=== PATIENT | female | born 1980 | race Caucasian/White ===

== ENCOUNTER 2021-09-08 06:47 | Emergency (ER) | payer OTHER, MEDICAID, SELFPAY ==
[2021-09-08 07:03] VITALS: BP 122/76; PULSE 95; RESP 17; TEMP 36.5; O2SAT 100; BMI 31.6
--- NOTE | 2021-09-08 07:14 | ED_ITS ---
HPI - URI/Sore Throat General Chief Complaint: Upper Respiratory Symptoms Stated Complaint: Swollen, painful neck Time Seen by Provider: 09/08/21 06:58 Source: patient Mode of arrival: Ambulatory History of Present Illness HPI Narrative: Patient is a healthy 40-year-old female who presents with swollen neck. She states that she was in her normal state of health yesterday. She has not had any fever or chills. However last night started having mild sore throat. In the morning will help with swelling in her right jaw. She denies any dental pain. Although she says will while back she lost in left upper tooth no she thinks she swallowed it. She has no pain in her teeth at all. There is no cough or fever. She denies any difficulty swallowing or speaking. Her rapid strep is negative. Related Data Previous Rx's Medication Instructions Recorded amoxicillin 875 mg-potassium 1 tab PO BID #14 tab 09/08/21 clavulanate 125 mg tablet Allergies Allergy/AdvReac Type Severity Reaction Status Date / Time No Known Drug Allergies Allergy Verified 09/08/21 07:02 Review of Systems Review of Systems Narrative: GENERAL: Denies chills, fatigue, malaise, fever, sweats, travel HEENT: See HPI RESPIRATORY: Denies dyspnea, cough, wheezing, hemoptysis, sputum. CARDIOVASCULAR: Denies chest pain, palpitations, orthopnea, edema GASTROINTESTINAL: Denies nausea, vomiting, abdominal pain, diarrhea, constipation, melena. : Denies dysuria, frequency, incontinence, hematuria, urinary retention, flank pain. MUSCULOSKELETAL: Denies weakness, joint pain, or bony pain SKIN: No rash, no erythema, no pruritus NEUROLOGIC: Denies weakness, dizziness, headache, numbness, change in speech, confusion PSYCHIATRIC: No concerning psychosocial issues. 12 point review of systems is negative except for those stated above and HPI Patient History Social History Smoking Status: Current every day smoker Smoking Status: Current every day smoker Substance Use Type: does not use Exam Initial Vital Signs Initial Vital Signs: Vital Signs Temperature 97.7 F 09/08/21 07:03 Pulse Rate 95 H 09/08/21 07:03 Respiratory Rate 17 09/08/21 07:03 Blood Pressure 122/76 09/08/21 07:03 Pulse Oximetry 100 09/08/21 07:03 GENERAL: Alert 40-year-old female appears well HEENT: Head atraumatic,EOMI, pupils reactive, face symmetric, moist mucous membranes PHARYNX: No uvula deviation airway intact mild tonsillar enlargement without exudate or airway compromise. She does have significant right submandibular swelling without erythema. Mild tender to touch but not significant. CARDIOVASCULAR: Regular rate and rhythm without murmurs, rubs or gallops. RESPIRATORY: Breath sounds equal bilaterally, no wheezes rales or rhonchi. EXTREMITIES: Normal range of motion, no clubbing or edema. Neurovascularly intact NEUROLOGICAL: Alert and oriented x4. SKIN: Warm, dry, no laceration, no petechiae, no rashes or lesions. Course Orders Ordered: ED Orders 09/08/21 07:40 COVID19 -Nasal RAPID/Pre-Proc Stat 09/08/21 08:12 CT soft tissue neck wo con Stat Discontinued Medications Ketorolac Tromethamine (Ketorolac 30 Mg/Ml Vial) 30 mg IV NOW ONE Stop: 09/08/21 08:50 Last Admin: 09/08/21 08:58 Dose: 30 mg Documented by: CIRA Vital Signs Vital signs: Vital Signs - 8 hr 09/08/21 07:03 09/08/21 07:42 09/08/21 07:55 Temperature 97.7 F Pulse Rate 95 H 93 H 91 H Respiratory Rate 17 15 Blood Pressure 122/76 116/72 118/65 Pulse Oximetry 100 100 96 09/08/21 08:00 09/08/21 08:30 Temperature Pulse Rate 90 90 Respiratory Rate 15 18 Blood Pressure 114/61 121/75 Pulse Oximetry 98 98 MDM - URI/Sore Throat Lab Data Labs: Lab Results 09/08/21 Range/Units 07:40 SARS-CoV-2 (PCR) Negative (Negative) Point of Care Testing Test Results Negative Rapid Strep A Negative Imaging Data CT soft tissue neck: Radiologist's Impression: Julianne Larry MR#: [id number] : 1980 Acct:[id number] Age/Sex: 40 / F Date of Service: 09/08/21 Loc: ED Accession Number: [id number] ?? Procedure: CT soft tissue neck wo con Ordering Provider: Botnick,Lynne D.O. PROCEDURE: CT SOFT TISSUE NECK WO CON ? COMPARISON: None. ? INDICATIONS: right submadibular swelling ? stone ? TECHNIQUE:? 3 millimeter axial images obtained through the neck.? Sagittal coronal reformations images performed. ? FINDINGS: ? Enlarged bilateral level 2 neck lymph nodes are noted with largest left-sided lymph node measuring 1.1 and largest right-sided lymph node measuring 1.3 centimeters.? No mucosal based masses.? Parotid glands are normal in appearance.? The submandibular glands are prominent bilaterally.? Mild inflammatory changes are noted adjacent to the submandibular glands, right greater than left.? No submandibular ductal dilatation.? No salivary gland stones identified.? Thyroid gland is normal in appearance.? Spine degenerative disc disease and facet arthropathy.? ? IMPRESSION: ? Bilateral submandibular sialadenitis.? ? No submandibular stone or ductal dilatation. ? Bilateral level 2 neck lymphadenopathy likely reactive. ? ? ? Dictated by: Verona Hagen MD, PhD on 09/08/2021 at 8:25 ? ? MDM Narrative Medical decision making narrative: Patient is without infectious symptoms but has sudden onset of swelling in her face and neck. Concern for submandibular stone. She does infectious symptoms no redness do not suspect abscess. CT without contrast does show bilateral submandibular sialadenitis. Radiology called says that it would be better with IV contrast but no need to be re- scanned at this time. The patient's symptoms came on quite suddenly she does not have any significant infectious symptoms but is having pain and swelling bilaterally worse on right than left. No airway compromise appreciated at this time. Might be viral infection but will treat with antibiotics. No risk factors for MRSA. Augmentin should work. I did discuss with patient if symptoms worsen then she needs to return to the ER. She overall appears well I see no need for blood work or other testing. Strep and COVID are both negative. Discharge Plan Departure Patient Disposition: Home Clinical Impression: Acute viral sialadenitis Instructions: Parotitis Activity Restrictions/Additional Instructions: *You have been diagnosed with inflammation of your cell very gland *What to do: At this time recommend drinking fluids and supportive care. Please monitor closely for any fever redness difficulty breathing. *Continue to take medications as directed Ibuprofen 600 mg every 6 hours if needed for [id number] pain Augmentin 875 twice a day for 10 days *Follow up with your primary care provider in 2-3 days or call [phone] *Return to ER if you should have increased swelling, fever, redness, tongue pa in, difficulty breathing or worsening swelling or any new, worsening or concerning symptoms Prescriptions: New amoxicillin-pot clavulanate 875-125 mg tablet 1 tab PO BID Qty: 14 0RF
[2021-09-08 07:42] VITALS: BP 116/72; PULSE 93; O2SAT 100
[2021-09-08 07:55] VITALS: BP 118/65; PULSE 91; RESP 15; O2SAT 96
[2021-09-08 08:00] VITALS: BP 114/61; PULSE 90; RESP 15; O2SAT 98
--- NOTE | 2021-09-08 08:12 | DI.CT.S_ITS ---
PROCEDURE: CT SOFT TISSUE NECK WO CON COMPARISON: None. INDICATIONS: right submadibular swelling ? stone TECHNIQUE: 3 millimeter axial images obtained through the neck. Sagittal coronal reformations images performed. FINDINGS: Enlarged bilateral level 2 neck lymph nodes are noted with largest left-sided lymph node measuring 1.1 and largest right-sided lymph node measuring 1.3 centimeters. No mucosal based masses. Parotid glands are normal in appearance. The submandibular glands are prominent bilaterally. Mild inflammatory changes are noted adjacent to the submandibular glands, right greater than left. No submandibular ductal dilatation. No salivary gland stones identified. Thyroid gland is normal in appearance. Spine degenerative disc disease and facet arthropathy. IMPRESSION: Bilateral submandibular sialadenitis. No submandibular stone or ductal dilatation. Bilateral level 2 neck lymphadenopathy likely reactive. Dictated by: Verona Hagen MD, PhD on 09/08/2021 at 8:25 Approved by: Verona Hagen MD, PhD on 09/08/2021 at 8:35
[2021-09-08 08:30] VITALS: BP 121/75; PULSE 90; RESP 18; O2SAT 98
[2021-09-08 08:37] LABS: COVID19 -Nasal RAPID Negative (Negative)
[2021-09-08] MEDS: KETOROLAC 30 MG/ML VIAL IV (08:58)
== END 2021-09-08 09:18 | disposition home or self-care (01) ==
PROVIDERS: Emergency Provider Emergency Medicine
DX: K11.21 Acute sialoadenitis (principal); Z20.822 Contact with and (suspected) exposure to COVID-19
CPT/HCPCS: 36415; 70490; 81025; 87635; 87880; 96374; 99284; C9803; J1885

== ENCOUNTER 2022-05-01 20:07 | Emergency (ER) | payer OTHER, MEDICAID, SELFPAY ==
[2022-05-01 20:20] VITALS: BP 126/75; PULSE 98; RESP 18; TEMP 36.6; O2SAT 96; BMI 32.5
--- NOTE | 2022-05-01 20:26 | DI.RAD.S_ITS ---
PROCEDURE: XR CHEST 2V INDICATIONS: cough, SOB TECHNIQUE: 2 views of the chest were acquired. COMPARISON: None. FINDINGS: Surgical changes and devices: None. Lungs and pleura: Lungs are clear. No pleural effusions or pneumothorax. Mediastinum: Mediastinal contours are normal. Heart size is normal. Bones and chest wall: No suspicious bony abnormalities. Soft tissues appear unremarkable. IMPRESSION: 1. No acute cardiopulmonary disease. Dictated by: Duncan Freeman M.D. on 05/01/2022 at 21:28 Approved by: Duncan Freeman M.D. on 05/01/2022 at 21:29
[2022-05-01 21:07] LABS: Influenza A - CEPHEID Flu A NEGATIVE (NEGATIVE); Influenza B - CEPHEID Flu B NEGATIVE (NEGATIVE); Respiratory Syncytial Virus Negative (Negative)
[2022-05-01 21:11] LABS: COVID-19 CEPHEID 4-PLEX PCR Negative (Negative)
[2022-05-01 22:06] VITALS: PULSE 96; RESP 19; O2SAT 97
--- NOTE | 2022-05-01 22:23 | ED.URI ---
HPI - URI/Sore Throat General Chief Complaint: Upper Respiratory Symptoms Stated Complaint: respiratory issues Time Seen by Provider: 05/01/22 20:21 Source: patient Mode of arrival: Family Vehicle History of Present Illness HPI Narrative: 41 year old female smoker without chronic medical history presents with the chief complaint of about 2 weeks of persistent upper respiratory symptoms including nasal congestion, chest congestion and cough. She denies sore throat and has had no fever or chills. She states deep breath seems to worsen her cough and it gets worse at night. She denies nausea, vomiting or diarrhea. She denies any chest pain or hemoptysis. She has had no long distance travel, known cancer or history of blood clot. Related Data Previous Rx's Medication Instructions Recorded amoxicillin 875 mg-potassium 1 tab PO BID #14 tabs 09/08/21 clavulanate 125 mg tablet albuterol sulfate 90 mcg/actuation 2 inh inhalation Q4H PRN shortness 05/01/22 breath activated powder inhaler of breath or wheezing #1 ea benzonatate 200 mg capsule 200 mg PO BID PRN cough #20 caps 05/01/22 doxycycline hyclate 100 mg tablet 100 mg PO BID #20 tabs 05/01/22 inhalational spacing device (Space #1 ea 05/01/22 Chamber) prednisone 20 mg tablet 20 mg PO DAILY #5 tabs 05/01/22 Allergies Allergy/AdvReac Type Severity Reaction Status Date / Time No Known Drug Allergies Allergy Verified 05/01/22 20:23 Review of Systems Review of Systems Narrative: GENERAL: See HPI HEENT: see HPI RESPIRATORY: see HPI CARDIOVASCULAR: Denies chest pain, palpitations, orthopnea, edema, GASTROINTESTINAL: Denies nausea, vomiting, abdominal pain, diarrhea, constipation, melena. : Denies dysuria, frequency, incontinence, hematuria, urinary retention. MUSCULOSKELETAL: denies weakness, joint pain, or bony pain SKIN: Denies rash, skin lesions, or other NEUROLOGIC: Denies weakness, headache, numbness, change in speech, confusion, seizures, incoordination. PSYCHIATRIC: No concerning psychosocial issues. 12 point review of systems is negative except for those stated above Patient History Social History Smoking Status: Current every day smoker Smoking Status: Current every day smoker Substance Use Type: does not use Exam Narrative Exam Narrative: GENERAL: [41] year old patient appears stated age. Well-developed patient, in mild distress. HEAD: Atraumatic. Normocephalic. EYES: Pupils equal round and reactive. Extraocular motions intact. No scleral icterus. No injection or drainage. ENT: Nose without bleeding, purulent drainage. Throat without erythema, tonsillar hypertrophy or exudate. Airway patent. NECK: Trachea midline. Non tender CARDIOVASCULAR: Regular rate and rhythm without murmurs, gallops, or rubs. RESPIRATORY: prolonged expiratory phase and faint end expiratory wheeze, no rales, rhonchi GASTROINTESTINAL: Abdomen soft, non-tender, nondistended. EXTREMITIES: No edema or joint tenderness. BACK: Nontender without deformity or crepitance. No flank tenderness. NEURO: AOx3. SKIN: No rash or erythema of visible areas Initial Vital Signs Initial Vital Signs: Vital Signs Temperature 97.8 F 05/01/22 20:20 Pulse Rate 98 H 05/01/22 20:20 Respiratory Rate 18 05/01/22 20:20 Blood Pressure 126/75 05/01/22 20:20 Pulse Oximetry 96 05/01/22 20:20 Oxygen Delivery Method 05/01/22 20:20 Course Orders Ordered: ED Orders 05/01/22 20:24 Covid-19 + FLU A/B + RSV - PCR Stat 05/01/22 20:26 XR chest 2V Stat Vital Signs Vital signs: Vital Signs - 8 hr 05/01/22 20:20 05/01/22 22:06 Temperature 97.8 F Pulse Rate 98 H 96 H Respiratory Rate 18 19 Blood Pressure 126/75 Pulse Oximetry 96 97 Oxygen Delivery Method Room Air Room Air MDM - URI/Sore Throat Lab Data Labs: Lab Results 05/01/22 Range/Units 20:24 SARS-CoV-2 (PCR) Negative (Negative) Influenza A (RT-PCR) Flu a negative (NEGATIVE) Influenza B (RT-PCR) Flu b negative (NEGATIVE) RSV (PCR) Negative (Negative) Imaging Data Chest x-ray: Radiologist's Impression: [address] [address] XRay Report Signed Patient: Julianne Larry MR#: [id number] : 1980 Acct:[id number] Age/Sex: 41 / F Date of Service: 05/01/22 Loc: ED Accession Number: [id number] ?? Procedure: XR chest 2V Ordering Provider: Mehdi Baer D.O. PROCEDURE:? XR CHEST 2V ? INDICATIONS:? cough, SOB ? TECHNIQUE:? 2 views of the chest were acquired.? ? COMPARISON:? None. ? FINDINGS:? ? Surgical changes and devices:? None.? ? Lungs and pleura:? Lungs are clear.? No pleural effusions or pneumothorax.? ? Mediastinum:? Mediastinal contours are normal.? Heart size is normal.? ? Bones and chest wall:? No suspicious bony abnormalities.? Soft tissues appear unremarkable.? ? IMPRESSION:? ? 1.? No acute cardiopulmonary disease. ? ? ? Dictated by: Duncan Freeman M.D. on 05/01/2022 at 21:28 ? ? Approved by: Duncan Freeman M.D. on 05/01/2022 at 21:29 ? MDM Narrative Medical decision making narrative: [ 41-year-old female with dry hacking cough and nasal congestion for 2 weeks] Multiple etiologies for patient's symptoms considered including, but not limited to: flu, COVID, RSV, pneumonia[] Prior Charts reviewed: prior note for sialadenitis Labs reviewed and interpreted by myself: swabs negative for flu, COVID and RSV Imaging reviewed: no acute process Findings and discharge diagnosis discussed with patient/family followed by verbalization of understanding Return precautions discussed with patient/family whom verbalize understanding of diagnosis and plan Discharge Plan Departure Patient Disposition: Home Clinical Impression: Atypical pneumonia Instructions: DI for Atypical Pneumonia Activity Restrictions/Additional Instructions: *You have been diagnosed with [ atypical pneumonia. As we discussed your history and physical exam are reassuring. Chest x-ray shows no obvious typical pneumonia and respiratory swabs are negative for COVID, flu and RSV] *What to do: *Please continue to take your regular medications as directed. [x ] New medication prescriptions sent to your pharmacy: [[facility] [place] ] [ ] New medication written as a paper prescription [ ] No new medications given *Please follow up with your primary care provider in 2-3 days, call for an appointment. Let them know you were seen in the Emergency Department and that we ask that you be seen in follow up. We will electronically transmit a record of today's note if your PCP is in our system *If you do not have a primary care provider please contact the [facility] Resource line at [phone]. They will ask some questions about your medical history and help get you set up with a doctor in the community. *Return to Emergency Department if you should have any new, worsening or concerning symptoms, such as [fever greater than 101 F, shaking chills, worsening pain, persistent vomiting or other bothersome symptoms] Prescriptions: New albuterol sulfate 90 mcg/actuation aerosol powdr breath activated 2 inh INHALATION Q4H PRN (Reason: shortness of breath or wheezing) Qty: 1 0RF Rx Instructions: administer with spacer benzonatate 200 mg capsule 200 mg PO BID PRN (Reason: cough) Qty: 20 0RF doxycycline hyclate 100 mg tablet 100 mg PO BID Qty: 20 0RF prednisone 20 mg tablet 20 mg PO DAILY Qty: 5 0RF Rx Instructions: administer with food or milk (DME) Space Chamber Spacer See Rx Instructions .Route Qty: 1 0RF Rx Instructions: As directed No Action amoxicillin-pot clavulanate 875-125 mg tablet 1 tab PO BID Qty: 14 0RF Stand Alone Forms: Patient Portal/API
== END 2022-05-01 22:42 | disposition home or self-care (01) ==
PROVIDERS: Emergency Provider Emergency Medicine
DX: J18.9 Pneumonia, unspecified organism (principal); F17.200 Nicotine dependence, unspecified, uncomplicated
CPT/HCPCS: 0241U; 71046; 99281; 99283

== ENCOUNTER 2022-11-24 12:28 | Emergency (ER) | payer OTHER, MEDICAID, SELFPAY ==
[2022-11-24 12:30] VITALS: BP 145/82; PULSE 96; RESP 18; TEMP 36.6; O2SAT 98; BMI 31.7
--- NOTE | 2022-11-24 12:42 | ED.GENADULT ---
HPI - General Adult General Chief complaint: Dental/Oral Stated complaint: INFECTION IN MOUTH Time Seen by Provider: 11/24/22 12:38 Source: patient Mode of arrival: Ambulatory History of Present Illness HPI narrative: Patient is a 42-year-old female who is here for evaluation of multiple areas in her mouth that she thinks she has infected teeth. She states she was homeless for a period of time and did not take care of her mouth. She is a couple missing teeth. She is pain in the right upper and left upper. She is also having some ear discomfort. Has not tried anything for the symptoms prior to arrival. Related Data Previous Rx's Medication Instructions Recorded amoxicillin 875 mg-potassium 1 tab PO BID #14 tabs 09/08/21 clavulanate 125 mg tablet albuterol sulfate 90 mcg/actuation 2 inh inhalation Q4H PRN shortness 05/01/22 breath activated powder inhaler of breath or wheezing #1 ea benzonatate 200 mg capsule 200 mg PO BID PRN cough #20 caps 05/01/22 doxycycline hyclate 100 mg tablet 100 mg PO BID #20 tabs 05/01/22 inhalational spacing device (Space #1 ea 05/01/22 Chamber) prednisone 20 mg tablet 20 mg PO DAILY #5 tabs 05/01/22 albuterol sulfate 90 mcg/actuation 2 puff inhalation Q6H PRN 05/02/22 aerosol inhaler shortness of breath or wheezing #8.5 grams penicillin V potassium 500 mg 500 mg PO QID 7 days #28 tabs 11/24/22 tablet Allergies Allergy/AdvReac Type Severity Reaction Status Date / Time No Known Drug Allergies Allergy Verified 05/01/22 20:23 Review of Systems ENT Ears, Nose, Mouth, and Throat: Reports system reviewed and no additional complaints, except as documented Respiratory Respiratory: Reports system reviewed and no additional complaints, except as documented Patient History Social History Smoking Status: Current every day smoker Smoking Status: Current every day smoker tobacco type: cigarettes Substance Use Type: does not use Exam Initial Vital Signs Initial Vital Signs: Vital Signs Temperature 98 F 11/24/22 12:30 Pulse Rate 96 H 11/24/22 12:30 Respiratory Rate 18 11/24/22 12:30 Blood Pressure 145/82 H 08/05/23 12:30 Pulse Oximetry 98 11/24/22 12:30 Oxygen Delivery Method Room Air 11/24/22 12:30 HENMT Face and sinus: normal facial exam Mouth: lip normal and tongue normal Teeth and gingiva: poor dentition Throat: posterior oropharynx normal Skin General: no rashes or lesions noted Course Vital Signs Vital signs: Vital Signs - 8 hr 11/24/22 12:30 Temperature 98 F Pulse Rate 96 H Respiratory Rate 18 Blood Pressure 145/82 H Pulse Oximetry 98 Oxygen Delivery Method Room Air Medical Decision Making MDM Narrative Medical decision making narrative: Patient does have poor dentition with several missing teeth. There was no drainable abscess seen here in the emergency department but she does have red gingiva in the right upper and left upper jaw. She is breathing without issue. Will discharge home with a prescription for antibiotics and instructions to follow-up with a dentist. Discharge Plan Departure Patient Disposition: Home Clinical Impression: Toothache Instructions: DI for Dental Pain Activity Restrictions/Additional Instructions: It is important that you make a follow-up appointment with a dentist as you are going to need to see a dentist for definitive treatment. Please take the antibiotics as directed. Prescriptions: New penicillin V potassium 500 mg tablet 500 mg PO QID 7 Days Qty: 28 0RF No Action amoxicillin-pot clavulanate 875-125 mg tablet 1 tab PO BID Qty: 14 0RF albuterol sulfate 90 mcg/actuation aerosol powdr breath activated 2 inh INHALATION Q4H PRN (Reason: shortness of breath or wheezing) Qty: 1 0RF Rx Instructions: administer with spacer benzonatate 200 mg capsule 200 mg PO BID PRN (Reason: cough) Qty: 20 0RF doxycycline hyclate 100 mg tablet 100 mg PO BID Qty: 20 0RF prednisone 20 mg tablet 20 mg PO DAILY Qty: 5 0RF Rx Instructions: administer with food or milk (DME) Space Chamber Spacer See Rx Instructions .Route Qty: 1 0RF Rx Instructions: As directed albuterol sulfate 90 mcg/actuation HFA aerosol inhaler 2 puff inhalation Q6H PRN (Reason: shortness of breath or wheezing) Qty: 8.5 0RF Stand Alone Forms: Patient Portal/API
== END 2022-11-24 12:48 | disposition home or self-care (01) ==
PROVIDERS: Emergency Provider Emergency Medicine
DX: K08.89 Other specified disorders of teeth and supporting structures (principal)
CPT/HCPCS: 99281